=== PATIENT | female | born 1960 | race Caucasian/White ===

== ENCOUNTER 2020-12-06 17:54 | Emergency (ER) | payer OTHER | END 2020-12-06 19:00 | disposition left against medical advice (07) | LOC: JD.ED 17:54 | DX: Z53.21 Procedure and treatment not carried out due to patient leaving prior to being seen by health care provider (principal) ==

== ENCOUNTER 2022-08-17 15:05 | Emergency (ER) | payer OTHER ==
[2022-08-17] MEDS ORDERED: Lidocaine 1% 10 ML MDV INJECT ONE (15:37)
== END 2022-08-17 17:10 | disposition home or self-care (01) ==
LOC: JD.ED 15:05
DX: S63.282A Dislocation of proximal interphalangeal joint of right middle finger, initial encounter (principal); W01.0XXA Fall on same level from slipping, tripping and stumbling without subsequent striking against object, initial encounter
CPT/HCPCS: 26770; 29131; 73130-26-LT; 73130-LT; 73140-26-F3; 73140-F3; 99283; J3490